=== PATIENT | female | born 1955 | race Caucasian/White ===

== ENCOUNTER → 2016-09-17 | Outpatient (CLI) | payer BC ==
--- NOTE | 2016-09-17 12:58 | Diagnostic Imaging Report ---
PROCEDURE: CT abdomen and pelvis without contrast. INDICATION: Left flank pain. FINDINGS: The lung bases appear clear. The liver, the pancreas, and the adrenal glands appear grossly unremarkable for unenhanced exam. The spleen is enlarged measuring 14.0 x 7.1 x 13.4 cm, slightly more prominent compared to 02/11/2015. The gallbladder is distended with a suggestion of a layering stone seen. No significant wall thickening or pericholecystic fluid seen. There is suggestion of prior hysterectomy. No bowel obstruction. No significant free fluid or fluid collection of the abdomen or pelvis is seen. There is mild stranding around the third portion of the duodenum and the small bowel mesentery. This may relate to enteritis. This is close to the undersurface of the uncinate process of the pancreas but is not believed to be primarily a pancreatic pathology or pancreatitis. The osseous structures demonstrate degenerative changes in the lower lumbar spine. 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 There is a hemangioma seen in L5 vertebral body. IMPRESSION: 1. Stranding along the third portion of the duodenum and in the small bowel mesentery likely related to enteritis. This stranding is close to the undersurface of the pancreas, but the pancreas otherwise appears unremarkable. Suggest confirming lack of pancreatitis with pancreatic enzymes. 2. No urinary tract stones. 3. Hydropic gallbladder with suggestion of stone. Correlate clinically and with gallbladder ultrasound if needed. 4. Splenomegaly. Report was faxed to office of Dr. Alfaro @ 12:57 PM/naima. Dictated by: Dictated on workstation # [id number]
== END ==
LOC: RAD 10:38
PROVIDERS: ATTEND Internal Medicine
DX: R10.84 Generalized abdominal pain (principal)
CPT/HCPCS: 74176

== ENCOUNTER → 2016-09-25 | Outpatient (CLI) | payer BC ==
--- NOTE | 2016-09-25 11:18 | Diagnostic Imaging Report ---
PROCEDURE: US Abdomen, limited. TECHNIQUE: Multiple realtime grayscale images were obtained over the abdomen in various projections. INDICATION: Right upper quadrant pain. FINDINGS: The visualized portions of the pancreas appear unremarkable. The liver is slightly coarse and echogenic with no focal mass. The CBD is obscured. No obvious intrahepatic biliary dilatation. The portal vein demonstrates hepatopetal flow. The gallbladder demonstrates a 0.8 cm hyperechoic non-shadowing lesion along the fundus area, suggestive of a polyp. No stones or wall thickening. The right kidney is 11.2 cm in length with no hydronephrosis or focal lesion. No ascites or fluid collection is seen. IMPRESSION: 1. Gallbladder lesion near the fundus measuring 0.8 cm is likely a polyp. 2. Hyperechoic coarse liver echotexture may relate to underlying hepatocellular disease. No focal mass. Dictated by: Dictated on workstation # [id number]
== END ==
LOC: RAD 09:12
PROVIDERS: ATTEND Internal Medicine
DX: R50.9 Fever, unspecified (principal); K82.8 Other specified diseases of gallbladder
CPT/HCPCS: 76705

== ENCOUNTER 2021-12-28 06:07 | Outpatient (CLI) | payer BC, MEDICARE ==
[~2021-12-28] VITALS: Ht 167.7 cm; Wt 81.8 kg
== END 2022-01-01 12:14 ==
LOC: PREOP 06:07
PROVIDERS: ATTEND Specialist
DX: Z01.818 Encounter for other preprocedural examination (principal); H26.9 Unspecified cataract

== ENCOUNTER 2022-01-05 10:06 | Day surgery (SDC) | payer BC, MEDICARE ==
[~2022-01-05] VITALS: Ht 167.7 cm; Wt 81.8 kg
[2022-01-05] MEDS: TETRACAINE 0.5% OPHTH SOLN 4 ML BTL (SINGLE DOSE ONLY) OU PRN ×4 (10:28→10:49)
[2022-01-05] MEDS ORDERED: TIMOLOL MALEATE 0.5% 5 ML (TIMOPTIC) BTL OU PRN (10:30)
[2022-01-05] MEDS ORDERED: MOXIFLOXACIN OPHTH SOLN 5 MG/ML 0.3 ML SYRINGE OP ONE (10:30)
[2022-01-05] MEDS ORDERED: POVIDONE (BETADINE) OPHTH SOLN 5% 30 ML OP ONE (10:30)
[2022-01-05] MEDS: PHENYLEPHRINE 10% OPHTH (NEO-SYN) 5 ML BTL OU SCH ×3 (10:36→10:50)
[2022-01-05] MEDS: TROPICAMIDE 1% OPH SOLN (MYDRIACYL) 15 ML BTL OP SCH ×3 (10:36→10:50)
[2022-01-05 10:37] VITALS: BP 97/68
--- NOTE | 2022-01-05 11:11 | Ophthalmologist Pre-Op Note ---
Pre-Operative Progress Note H&P Reviewed The H&P was reviewed, patient examined and no changes noted. Date H&P Reviewed: Jan 05, 2022 Time H&P Reviewed: 11:11 Pre-Op Dx Cataract, Right Eye ALIRIO MANNING MD Jan 05, 2022 11:11
[2022-01-05] MEDS ORDERED: MIDAZOLAM 2 MG/2 ML (VERSED) VIAL ONE (11:17)
[2022-01-05] MEDS ORDERED: acetaZOLAMIDE ER 500 MG CAP (DIAMOX SEQUELS) PO ONE (11:30)
--- NOTE | 2022-01-05 11:36 | Ophthalmology Operative Report ---
Cataract removal/placement IOL PREOPERATIVE DIAGNOSIS: Cataract Right Eye POSTOPERATIVE DIAGNOSIS: Cataract Right Eye PROCEDURE: Cataract removal and placement of posterior chamber implant, right eye SURGEON: Usman Manning ANESTHESIA: Topical with sedation COMPLICATIONS: None ESTIMATED BLOOD LOSS: Minimal DESCRIPTION OF PROCEDURE: After proper informed consent was obtained, the patient, a 66 female, was taken to the Operating Room and the right eye was anesthetized with tetracaine. The right eye was then prepped and draped in the usual manner. A wire lid speculum was placed. A paracentesis was made at the left hand position. Preservative free lidocaine was injected into the anterior chamber followed by viscoelastic. A clear corneal incision was made in the temporal position. A capsulorrhexis was preformed and the central nuclear and cortical material were removed. The posterior capsule was polished and Kaveh 19.0 AU00T0 IOL was placed into the capsular bag. The residual viscoelastic was aspirated and balanced saline solution was injected into the anterior chamber. Moxifloxacin was injected into the anterior chamber. The wound was checked and found to be water tight. The patient tolerated the procedure well without complications. USMAN MANNING MD Jan 05, 2022 11:36
[2022-01-05 11:40] VITALS: BP 121/65
--- NOTE | 2022-01-05 12:57 | Anesthesia-General Post-Op ---
MAC Patient Condition Mental Status/LOC: Same as Preop Cardiovascular: Satisfactory Nausea/Vomiting: Absent Respiratory: Satisfactory Pain: Controlled Complications: Absent Post Op Complications Complications None Follow Up Care/Instructions Patient Instructions None needed. Anesthesiology Discharge Order Discharge Order Patient is doing well, no complaints, stable vital signs, no apparent adverse anesthesia problems. No complications reported per nursing. ARI VICKERS CRNA Jan 05, 2022 12:56
== END 2022-01-05 11:41 | disposition home or self-care (01) ==
LOC: SDC 10:06
PROVIDERS: ATTEND Specialist
DX: H25.9 Unspecified age-related cataract (principal)
CPT/HCPCS: 66984; V2632

== ENCOUNTER 2022-01-15 05:39 | Outpatient (CLI) | payer MEDICARE ==
[~2022-01-15] VITALS: Ht 167.7 cm; Wt 81.8 kg
== END 2022-01-19 12:40 | disposition home or self-care (01) ==
LOC: PREOP 05:39
PROVIDERS: ATTEND Specialist
DX: Z01.818 Encounter for other preprocedural examination (principal)

== ENCOUNTER 2022-01-19 10:00 | Day surgery (SDC) | payer MEDICARE ==
[~2022-01-19] VITALS: Ht 167.7 cm; Wt 81.8 kg
[2022-01-19 10:10] VITALS: BP 131/72
[2022-01-19] MEDS: TETRACAINE 0.5% OPHTH SOLN 4 ML BTL (SINGLE DOSE ONLY) OU PRN ×4 (10:18→10:34)
[2022-01-19] MEDS: PHENYLEPHRINE 10% OPHTH (NEO-SYN) 5 ML BTL OU SCH ×3 (10:24→10:35)
[2022-01-19] MEDS: TROPICAMIDE 1% OPH SOLN (MYDRIACYL) 15 ML BTL OP SCH ×3 (10:24→10:35)
[2022-01-19] MEDS ORDERED: MOXIFLOXACIN OPHTH SOLN 5 MG/ML 0.3 ML SYRINGE OP ONE (10:30)
[2022-01-19] MEDS ORDERED: acetaZOLAMIDE ER 500 MG CAP (DIAMOX SEQUELS) PO ONE (10:30)
[2022-01-19] MEDS ORDERED: POVIDONE (BETADINE) OPHTH SOLN 5% 30 ML OP ONE (10:30)
[2022-01-19] MEDS ORDERED: TIMOLOL MALEATE 0.5% 5 ML (TIMOPTIC) BTL OU PRN (10:30)
[2022-01-19] MEDS ORDERED: MIDAZOLAM 2 MG/2 ML (VERSED) VIAL ONE (10:37)
--- NOTE | 2022-01-19 11:15 | Ophthalmologist Pre-Op Note ---
Pre-Operative Progress Note H&P Reviewed The H&P was reviewed, patient examined and no changes noted. Date H&P Reviewed: Jan 19, 2022 Time H&P Reviewed: 11:15 Pre-Op Dx Cataract, Left Eye ALIRIO MANNING MD Jan 19, 2022 11:15
--- NOTE | 2022-01-19 11:47 | Ophthalmology Operative Report ---
Cataract removal/placement IOL PREOPERATIVE DIAGNOSIS: Cataract Left Eye POSTOPERATIVE DIAGNOSIS: Cataract Left Eye PROCEDURE: Cataract removal and placement of posterior chamber implant, left eye SURGEON: Usman Manning ANESTHESIA: Topical with sedation COMPLICATIONS: None ESTIMATED BLOOD LOSS: Minimal DESCRIPTION OF PROCEDURE: After proper informed consent was obtained, the patient, a 66 female, was taken to the Operating Room and the left eye was anesthetized with tetracaine. The left eye was then prepped and draped in the usual manner. A wire lid speculum was placed. A paracentesis was made at the left hand position. Preservative free lidocaine was injected into the anterior chamber followed by viscoelastic. A clear corneal incision was made in the temporal position. A capsulorrhexis was preformed and the central nuclear and cortical material were removed. The posterior capsule was polished and an Kaveh 19.5 AU00T0 was placed into the capsular bag. The residual viscoelastic was aspirated and balanced saline solution was injected into the anterior chamber. Moxifloxacin was injected into the anterior chamber. The wound was checked and found to be water tight. The patient tolerated the procedure well without complications. USMAN MANNING MD Jan 19, 2022 11:47
[2022-01-19 11:48] VITALS: BP 128/72
--- NOTE | 2022-01-19 14:42 | Anesthesia-General Post-Op ---
MAC Patient Condition Mental Status/LOC: Same as Preop Cardiovascular: Satisfactory Nausea/Vomiting: Absent Respiratory: Satisfactory Pain: Controlled Complications: Absent Post Op Complications Complications None Follow Up Care/Instructions Patient Instructions None needed. Anesthesiology Discharge Order Discharge Order Patient is doing well, no complaints, stable vital signs, no apparent adverse anesthesia problems. No complications reported per nursing. KANCHAN ORTEGA CRNA Jan 19, 2022 14:42
== END 2022-01-19 11:50 | disposition home or self-care (01) ==
LOC: SDC 10:00
PROVIDERS: ATTEND Specialist
DX: H25.9 Unspecified age-related cataract (principal)
CPT/HCPCS: 66984; V2632